=== PATIENT | male | born 1970 | race African-American/Black ===

== ENCOUNTER 2018-11-23 07:10 | Emergency (ER) | payer BC ==
[2018-11-23 07:40] VITALS: BP 139/93
--- NOTE | 2018-11-23 08:03 | UC ---
Cardiac HPI - HPI Summary HPI Summary: 47-year-old male presents with complaints of chest pain that started last night. He describes the pain as "like a muscle pull". States has been doing a lot of heavy lifting at work the last few days. Pain is reproducible with palpation and worsens with movement. States he has had similar pain in the past which has been worked up and found to be noncardiac related. Denies fever , chills, weakness, dizziness, diaphoresis, shortness of breath, cough, heartburn, abdominal pain, nausea, or vomiting. - History of Current Complaint Chief Complaint: UCChestPain Stated Complaint: LFT BACK/CHEST PAIN Time Seen by Provider: 11/23/18 07:59 Hx Obtained From: Patient Pain Intensity: 2 - Allergy/Home Medications Allergies/Adverse Reactions: Allergies Allergy/AdvReac Type Severity Reaction Status Date / Time Environmental Allergies Allergy Congestion Uncoded 11/23/18 07:26 Home Medications: Home Medications Ibuprofen TAB* [Motrin TAB* 400 MG] 400 mg PO ONCE 11/23/18 [History Confirmed 11/23/18] LevoCETirizine TAB (NF) [Xyzal TAB (NF)] 5 mg PO DAILY 11/23/18 [History Confirmed 11/23/18] Omeprazole 40 mg PO DAILY 11/23/18 [History Confirmed 11/23/18] PMH/Surg Hx/FS Hx/Imm Hx Previously Healthy: Yes GI/ History: Gastroesophageal Reflux - Surgical History Surgical History: Yes Surgery Procedure, Year, and Place: left knee acl repair 1996. laser procedure with eye to correct lazy eye 1999. torn retina repair 2017 - Family History Known Family History: Positive: Hypertension - Social History Occupation: Employed Full-time Lives: With Family Alcohol Use: None Substance Use Type: None Smoking Status (MU): Never Smoked Tobacco - Immunization History Most Recent Influenza Vaccination: 06/02/15 Most Recent Tetanus Shot: unsure Review of Systems All Other Systems Reviewed And Are Negative: Yes Constitutional: Negative: Fever, Chills Skin: Negative: Rash Respiratory: Negative: Shortness Of Breath, Cough Cardiovascular: Positive: Chest Pain. Negative: Palpitations Gastrointestinal: Negative: Abdominal Pain, Vomiting, Diarrhea, Nausea Genitourinary: Positive: Negative Musculoskeletal: Positive: Negative Psychological: Positive: Negative Is Patient Immunocompromised?: No Physical Exam - Summary Physical Exam Summary: GENERAL APPEARANCE: Well developed, well nourished, alert and cooperative, and appears to be in no acute distress. EYES: Conjunctiva clear. No drainage. EARS: External auditory canals and tympanic membranes clear, hearing grossly intact. NOSE: No nasal discharge. THROAT: Pharynx normal. No tonsilar inflammation, swelling, exudate, or lesions. Uvula midline. Oral cavity normal. Teeth and gingiva in good general condition. NECK: Neck supple, non-tender without lymphadenopathy. CARDIAC: Normal S1 and S2. No S3, S4 or murmurs. Rhythm is regular. There is no peripheral edema, cyanosis or pallor. Extremities are warm and well perfused. Capillary refill is less than 2 seconds. Peripheral pulses intact. LUNGS: Clear to auscultation without rales, rhonchi, wheezing or diminished breath sounds. ABDOMEN: Positive bowel sounds. Soft, nondistended, nontender. No guarding or rebound. No masses or hepatosplenomegally. MUSKULOSKELETAL: ROM intact to all extremities. No joint erythema or tenderness. Normal muscular development. Normal gait. SKIN: Skin normal color, texture and turgor with no lesions or eruptions. Triage Information Reviewed: Yes Vital Signs: Initial Vital Signs Temp 97.6 F 11/23/18 07:30 Pulse 62 11/23/18 07:30 Resp 16 11/23/18 07:30 BP 139/93 11/23/18 07:30 Pulse Ox 97 11/23/18 07:30 Vital Signs Reviewed: Yes Diagnostics - EKG Cardiac Rate: Bradycardia Cardiac Rhythm: Sinus: Normal Ectopy: None ST Segment: Normal - Assessment/Plan Course Of Treatment: 47-year-old male presents with complaints of chest pain that started last night. He describes the pain as "like a muscle pull". States has been doing a lot of heavy lifting at work the last few days. Pain is reproducible with palpation and worsens with movement. States he has had similar pain in the past which has been worked up and found to be noncardiac related. Denies fever , chills, weakness, dizziness, diaphoresis, shortness of breath, cough, heartburn, abdominal pain, nausea, or vomiting. Afebrile. Mildly hypertensive otherwise vital signs are stable. Exam was essentially unremarkable except for some mild left-sided chest wall pain with palpation. EKG showed a sinus bradycardia without ectopy, ST elevation, or T-wave changes. Suspect pain is most likely musculoskeletal in origin although I discussed with the patient I could not fully rule out other causes. He is to follow-up with his primary care provider within 3 days for further evaluation. Anticipatory guidance and warning symptoms requiring immediate evaluation in the emergency room were reviewed with the patient. Verbalizes understanding and agrees with plan of care. - Differential Diagnoses - Chest Pain Differential Diagnosis/HQI/PQRI: Acute CO, ACS, Chest Wall, GI Disease, Lower Respiratory Infection - Clinical Impression Provider Diagnosis: Chest wall pain Discharge - Sign-Out/Discharge Documenting (check all that apply): Patient Departure All imaging exams completed and their final reports reviewed: No - Discharge Plan Condition: Stable Disposition: HOME Patient Education Materials: Chest Pain (ED) Referrals: Shawn Harding MD [Primary Care Provider] - 3 Days Additional Instructions: The EKG performed today was normal. I suspect that your pain is most likely muculoskeletal since it is reproducible with palpation and movement however I cannot fully rule out other causes. Follow up with your primary care provider within 3-5 days for further evaluation. Seek immediate medical attention in the emergency room if you have worsening chest pain, you become weak or dizzy, have shortness or breath, break out in a cold sweat, have nausea or vomiting, or have any worsening of symptoms. - Billing Disposition and Condition Condition: STABLE Disposition: Home - Attestation Statements Provider Attestation: Per institutional requirements, I have reviewed the chart, however, I was not consulted specifically or made aware of this patient by the midlevel provider. I did not personally evaluate, interact with , or disposition this patient.
--- NOTE | 2018-11-25 15:52 | UC ---
- Progress Note Progress Note: No imaging ordered. No change in management. Course/Dx - Diagnoses Provider Diagnoses: Chest wall pain Discharge - Sign-Out/Discharge Documenting (check all that apply): Post-Discharge Follow Up All imaging exams completed and their final reports reviewed: No Studies - Discharge Plan Condition: Stable Disposition: HOME Patient Education Materials: Chest Pain (ED) Referrals: Shawn Harding MD [Primary Care Provider] - 3 Days Additional Instructions: The EKG performed today was normal. I suspect that your pain is most likely muculoskeletal since it is reproducible with palpation and movement however I cannot fully rule out other causes. Follow up with your primary care provider within 3-5 days for further evaluation. Seek immediate medical attention in the emergency room if you have worsening chest pain, you become weak or dizzy, have shortness or breath, break out in a cold sweat, have nausea or vomiting, or have any worsening of symptoms. - Billing Disposition and Condition Condition: STABLE Disposition: Home
== END 2018-11-23 08:15 | disposition home or self-care (01) ==
LOC: UCEAST 07:10
DX: R07.89 Other chest pain (principal); R03.0 Elevated blood-pressure reading, without diagnosis of hypertension; R00.1 Bradycardia, unspecified; K21.9 Gastro-esophageal reflux disease without esophagitis
CPT/HCPCS: 99211; G0463

== ENCOUNTER 2018-12-12 00:25 | Emergency (ER) | payer BC ==
--- NOTE | 2018-12-12 01:42 | ED ---
Dizziness - HPI Summary HPI Summary: This patient is a 48 year old male presenting to [facility] with a chief complaint of lightheadedness, dizziness since 2 days ago. Patient states the pain started Friday night, while he was watching TV, but he thought that he was simply tired and went to sleep. However, patient states the lightheadedness persisted, even while he was at rest. Patient spoke to his PCP and he was told to come to the ED. The pain is rated 2/10 in severity. Symptoms aggravated by nothing. Symptoms alleviated by nothing. Patient additionally reports chest pain, headache - History Of Current Complaint Chief Complaint: EDChestPainROMI Stated Complaint: "CHEST PAIN/HEADACHE DOC TOLD TO COME IN" PER PT Time Seen by Provider: 12/12/18 01:34 Hx Obtained From: Patient Onset/Duration: Still Present Timing: Constant Severity Currently: Mild Character: Lightheaded, Dizzy Aggravating Factor(s): Nothing Alleviating Factor(s): Nothing Associated Signs And Symptoms: Positive: Other: - headache, chest pain - Allergies/Home Medications Allergies/Adverse Reactions: Allergies Allergy/AdvReac Type Severity Reaction Status Date / Time Environmental Allergies Allergy Congestion Uncoded 12/12/18 00:33 Home Medications: Home Medications NK [No Home Medications Reported] 12/12/18 [History Confirmed 12/12/18] PMH/Surg Hx/FS Hx/Imm Hx Previously Healthy: No Endocrine/Hematology History: Denies: Hx Diabetes, Hx Thyroid Disease Cardiovascular History: Denies: Hx Hypertension Respiratory History: Reports: Hx Asthma Denies: Hx Chronic Obstructive Pulmonary Disease (COPD) GI History: Denies: Hx Ulcer - Surgical History Surgery Procedure, Year, and Place: left knee acl repair 1996. laser procedure with eye to correct lazy eye 1999. torn retina repair 2018 Infectious Disease History: No Infectious Disease History: Denies: Hx Clostridium Difficile, Hx Hepatitis, Hx Human Immunodeficiency Virus (HIV), Hx of Known/Suspected MRSA, History Other Infectious Disease, Traveled Outside the [place] in Last 30 Days - Family History Known Family History: Positive: Hypertension - Social History Alcohol Use: None Hx Substance Use: No Substance Use Type: Reports: None Hx Tobacco Use: No Smoking Status (MU): Never Smoked Tobacco Review of Systems Negative: Fever Neurological: Other - lightheadedness Positive: Headache All Other Systems Reviewed And Are Negative: Yes Physical Exam - Summary Physical Exam Summary: Appearance: Well-appearing, Well-nourished, lying in bed comfortably Skin: Warm, dry, no obvious rash Eyes: sclera anicteric, no conjunctival pallor ENT: mucous membranes moist, pharynx appears normal Neck: Supple, nontender Respiratory: Clear to auscultation, no signs of respiratory distress Cardiovascular: Normal S1, S2. No murmurs. Normal distal pulses in tibial and radial bilaterally. Abdomen: Soft, nontender, normal active bowel sounds present Musculoskeletal: Normal, Strength/ROM Intact Neurological: A&Ox3, awake and alert, mentation is normal, speech is fluent and appropriate Psychiatric: affect is normal, does not appear anxious or depressed Triage Information Reviewed: Yes Vital Signs On Initial Exam: Initial Vitals Temp Pulse Resp BP Pulse Ox 98 F 53 16 144/90 98 12/12/18 00:30 12/12/18 00:30 12/12/18 00:30 12/12/18 00:30 12/12/18 00:30 Vital Signs Reviewed: Yes Diagnostics - Vital Signs Vital Signs Temp Pulse Resp BP Pulse Ox 12/12/18 01:18 52 17 144/98 98 12/12/18 01:17 6 12/12/18 00:30 98 F 53 16 144/90 98 - Laboratory Result Diagrams: 12/12/18 02:03 12/12/18 02:03 Lab Statement: Any lab studies that have been ordered have been reviewed, and results considered in the medical decision making process. - Radiology CXR Radiology Interpretation Completed By: ED Physician Summary of Radiographic Findings: CXR reveals, per ED physician, No acute process. Pending official report. - EKG 33 Cardiac Rate: Bradycardia EKG Rhythm: Sinus Bradycardia Ectopy: None Summary of EKG Findings: An EKG, taken 33, reveals Sinus Bradycardia (50 BPM) , St elevation, normal axis, normal interval Dizzy Course/Dx - Course Course Of Treatment: This patient is a 48 year old male presenting to [facility] with a chief complaint of lightheadedness, dizziness since 2 days ago. Patient states the pain started Friday night, while he was watching TV, but he thought that he was simply tired and went to sleep. However, patient states the lightheadedness persisted, even while he was at rest. An EKG, taken 0034, reveals Sinus Bradycardia (50 BPM), St elevation. CXR reveals, per ED physician , No acute process. Pending official report. Bloodwork Obtained. Urinalysis Obtained. Patient will be discharged with a dx of noncardiac chest pain, near- syncope. Patient is advised to follow up with PCP in 3 days. The patient is agreeable with this plan. - Diagnoses Provider Diagnoses: Non-cardiac chest pain, Near syncope Discharge - Sign-Out/Discharge Documenting (check all that apply): Patient Departure Patient Received Moderate/Deep Sedation with Procedure: No - Discharge Plan Condition: Good Disposition: HOME Patient Education Materials: Chest Pain (ED), Near Syncope (ED) Referrals: Shawn Harding MD [Primary Care Provider] - 3 Days - Billing Disposition and Condition Condition: GOOD Disposition: Home - Attestation Statements Document Initiated by Rissa: Yes Documenting Scribe: Iftikhar Echols Provider For Whom Rissa is Documenting (Include Credential): Boby Chavira MD Scribe Attestation: Iftikhar Aguirre scribed for Boby Chavira MD on 12/12/18 at 0617. Scribe Documentation Reviewed: Yes Provider Attestation: The documentation as recorded by the Iftikhar cee accurately reflects the service I personally performed and the decisions made by , Boby Chavira MD Status of Scribe Document: Viewed
[2018-12-12 02:11] LABS: ABS Basophils 0.1 10^3/ul (0-0.2); ABS Eosinophils 0.2 10^3/ul (0-0.6); ABS Lymphocytes 2.2 10^3/ul (1.0-4.8); ABS Monocytes 0.6 10^3/ul (0-0.8); ABS Neutrophils 4.8 10^3/ul (1.5-7.7); Hematocrit 42 % (42-52); Hemoglobin 14.7 g/dL (14.0-18.0); Lymphocyte % 27.9 %; Mean Corpuscular HGB Conc 35 g/dL (31-36); Mean Corpuscular Hemoglobin 30 pg (27-31); Mean Corpuscular Volume 87 fL (80-94); Mean Platelet Volume 8.8 fL (7.4-10.4); Nucleated Red Blood Cells % 0.1; Platelet Count 201 10^3/uL (150-450); Red Blood Count 4.83 10^6 /uL (4.18-5.48); Red Cell Distribution Width 15 % (10.5-15); White Blood Count 7.9 10^3/uL (3.5-10.8)
[2018-12-12 02:26] LABS: Albumin 4.1 g/dL (3.2-5.2); Albumin/Globulin Ratio 1.7 (1-3); BUN/Creatinine Ratio 12.5 (8-20); Calcium 8.8 mg/dL (8.6-10.3); EGFR African American 84.7 (>60); Globulin 2.4 g/dL (2-4); Potassium 3.7 mmol/L (3.5-5.0); Total Bilirubin 0.5 mg/dL (0.2-1.0); Total Protein 6.5 g/dL (6.4-8.9)
[2018-12-12 04:14] VITALS: BP 125/86
== END 2018-12-12 03:20 | disposition home or self-care (01) ==
LOC: ED 00:25
DX: R07.89 Other chest pain (principal); R55 Syncope and collapse; J45.909 Unspecified asthma, uncomplicated
CPT/HCPCS: 36415; 71045; 80053; 84443; 84484; 85025; 93005; 99283

== ENCOUNTER 2019-05-04 16:54 | Emergency (ER) | payer BC ==
--- OUTSIDE RECORDS SUMMARY | 2019-05-04 17:01 | XMS REPORT | Continuity of Care Document ---
:1970 External Reference #:[id number] Author Name ELOISE Okeefe (transmitted by agent of provider Efra Madrigal) Address [address] [place] [address] Care Team Providers Name Role Phone Shawn Harding MD - Family Medicine Care Team Information Carding Supervisor Problems Active Problems Provider Date Uncomplicated moderate persistent asthma Tony Cagle RPA-C Onset: 2016 Allergic rhinitis due to pollen Tony Cagle RPA-C Onset: 01/13/2017 Allergic rhinitis Tony Cagle RPA-C Onset: 01/13/2017 Social History Type Date Description Comments Sex Unknown Tobacco Use Start: Unknown Patient has never smoked Tobacco Use Start: Unknown Second Hand Smoke Exposure In The Home Smoking Status Reviewed: 04/21/19 Second Hand Smoke Exposure In The Home Allergies, Adverse Reactions, Alerts Description No Known Drug Allergies Medications Active Medications SIG Qnty Indications Ordering Provider Date Nasonex spray 2 sprays in 1units J30.1 Christopher A. 04/21/2019 50mcg/Act each nostril by MD Rohan Suspension intranasal route once daily Roxanna Allergy take one tab by 30tabs J30.1 Christopher A. 04/21/2019 mouth daily in MD Rohan 180mg Tablets the morning. Advair HFA 2 puff twice a 8gm Christopher A. 03/24/2019 day MD Rohan 230-21mcg/Act Aerosol Xyzal Allergy 24HR take 1 tablet (5 30tabs Christopher A. 03/13/2018 mg) by oral route MD Rohan 5mg Tablets once daily as needed Proair HFA 2 puffs every 4 8.500gm Bety Simpson NP 03/13/2018 as needed 108(90Base) mcg/Act Aerosol Vitamin C take 1 tablet by Unknown 500mg oral route daily Tablets Ativan Unknown Omeprazole Shawn Harding MD 20mg Capsules DR Medications Administered in Office Medication SIG Qnty Indications Ordering Provider Date Allergy Injection 2 Or More Efra Madrigal MD 10/09/2018 Injection Allergy Injection 2 Or More Efra Madrigal MD 10/02/2018 Injection Allergy Injection 2 Or More Efra Madrigal MD 09/23/2018 Injection Allergy Injection 2 Or More Efra Madrigal MD 09/04/2018 Injection Allergy Injection 2 Or More Efra Madrigal MD 08/14/2018 Injection Allergy Injection 2 Or More Efra Madrigal MD 07/24/2018 Injection Allergy Injection 2 Or More Efra Madrigal MD 07/17/2018 Injection Allergy Injection 2 Or More Efra Madrigal MD 07/10/2018 Injection Allergy Injection 2 Or More Efra Madrigal MD 07/01/2018 Injection Allergy Injection 2 Or More Efra Madrigal MD 05/22/2018 Injection Allergy Injection 2 Or More Efra Madrigal MD 05/08/2018 Injection Allergy Injection 2 Or More Efra Madrigal MD 05/01/2018 Injection Allergy Injection 2 Or More Efra Madrigal MD 04/17/2018 Injection Allergy Injection 2 Or More Efra Madrigal MD 04/10/2018 Injection Allergy Injection 2 Or More Efra Madrigal MD 12/05/2017 Injection Allergy Injection 2 Or More Efra Madrigal MD 11/28/2017 Injection Allergy Injection 2 Or More Efra Madrigal MD 11/14/2017 Injection Allergy Injection 2 Or More Efra Madrigal MD 10/31/2017 Injection Allergy Injection 2 Or More Efra Madrigal MD 10/24/2017 Injection Allergy Injection 2 Or More Efra Madrigal MD 09/26/2017 Injection Allergy Injection 2 Or More Efra Madrigal MD 09/05/2017 Injection Allergy Injection 2 Or More Efra Madrigal MD 08/29/2017 Injection Allergy Injection 2 Or More Efra Madrigal MD 08/06/2017 Injection Allergy Injection 2 Or More Efra Madrigal MD 08/01/2017 Injection Allergy Injection 2 Or More Efra Madrigal MD 07/21/2017 Injection Allergy Injection 2 Or More Efra Madrigal MD 02/21/2017 Injection Allergy Injection 2 Or More Efra Madrigal MD 01/29/2017 Injection Allergy Injection 2 Or More Efra Madrigal MD 04/12/2016 Injection Allergy Injection 2 Or More Efra Madrigal MD 03/27/2016 Injection Allergy Injection 2 Or More Efra Madrigal MD 02/21/2016 Injection Allergy Injection 2 Or More Efra Madrigal MD 02/09/2016 Injection Allergy Injection 2 Or More Efra Madrigal MD 01/24/2016 Injection Allergy Injection 2 Or More Efra Madrigal MD 12/22/2015 Injection Allergy Injection 2 Or More Efra Madrigal MD 11/17/2015 Injection Allergy Injection 2 Or More Efra Madrigal MD 10/20/2015 Injection Allergy Injection 2 Or More Efra Madrigal MD 10/06/2015 Injection Allergy Injection 2 Or More Efra Madrigal MD 09/08/2015 Injection Allergy Injection 2 Or More Efra Madrigal MD 08/25/2015 Injection Allergy Injection 2 Or More Efra Madrigal MD 07/21/2015 Injection Allergy Injection 2 Or More Efra Madrigal MD 06/30/2015 Injection Allergy Injection 2 Or More Efra Madrigal MD 06/16/2015 Injection Immunizations Description No Information Available Vital Signs Date Vital Result Comment 04/21/2019 2:49pm BP Systolic 140 mmHg BP Diastolic 101 mmHg Height 72 inches 6'0" Weight 225.00 lb BMI (Body Mass Index) 30.5 kg/m2 Heart Rate 81 /min O2 % BldC Oximetry 95 % 03/13/2018 3:37pm BP Systolic 122 mmHg BP Diastolic 91 mmHg Height 72 inches 6'0" Weight 217.00 lb BMI (Body Mass Index) 29.4 kg/m2 Heart Rate 73 /min Body Temperature 97.4 F O2 % BldC Oximetry 98 % Results Test Date Facility Test Result H/L Range Note Order 04/21/2019 [facility] Nitric Oxide <pending> PFT Supplies <pending> PFT With Bronchodilator <pending> Procedures Date Code Description Status 04/21/2019 45594 Nitric Oxide Gas Determination Completed 04/21/2019 28035 Bronchodilation Responsiveness Spirometry Pre/Post Completed Bronchodil Adm 03/15/2019 31197 Allergy Antigens Single Or Multiple Completed Medical Devices Description No Information Available Encounters Type Date Location Provider Dx Diagnosis Office Visit 04/21/2019 2:30p [facility] ELOISE Okeefe J30.1 Allergic rhinitis due to pollen J30.89 Other allergic rhinitis J45.40 Moderate persistent asthma, uncomplicated Assessments Date Code Description Provider 04/21/2019 J30.1 Allergic rhinitis due to pollen ELOISE Okeefe 04/21/2019 J30.89 Other allergic rhinitis ELOISE Okeefe 04/21/2019 J45.40 Moderate persistent asthma, uncomplicated ELOISE Okeefe 03/15/2019 J30.1 Allergic rhinitis due to pollen Efra Madrigal MD 03/15/2019 J30.89 Other allergic rhinitis Efra Madrigal MD Plan of Treatment Future Appointment(s):10/20/2019 3:00 pm - ELOISE [facility]keefe at [id number]/21/2019 - ELOISE OkeefeJ30.1 Allergic rhinitis due to pollenNew Medication:Nasonex 50 mcg/Act - spray 2 sprays in each nostril by intranasal route once dailyAllegra Allergy 180 mg - take one tab by mouth daily in the morning.J30.89 Other allergic [id number] Moderate persistent asthma, uncomplicatedComments: Patient's PFT is within normal limits and exhaled nitric oxide is normal at 18 ppb. Patient to continue Advair, reduce dosage, 1 puff twice a day for prophylaxis of his lungs and Pro Air for breakthrough chest symptoms. Patient to start Nasonex for prophylaxis of his nose and Roxanna for breakthrough nasal symptoms. Saline nasal rinse and HEPA air filter may help decrease allergens. Patient to continue allergy immunotherapy injections.Follow up:6 months, PFT and NIOX prior Functional Status Description No Information Available Mental Status Description No Information Available Referrals Description No Information Available
--- OUTSIDE RECORDS SUMMARY | 2019-05-04 17:01 | XMS REPORT | Summary of Care ---
:1970 Author Organization [facility] Address [address] [address] Care Team Providers Name Role Phone Shawn Harding MD Primary Care Provider Reason for Visit Auth/Cert Status Reason Specialty Diagnoses / Procedures Referred By Contact Referred To Contact Encounter Details Date Type Department Care Team Description 03/18/2019 Hospital Encounter [facility] Preprocedure Stiven Fajardo, Short [place] [address] [place] [address] [address] [phone] [address] [address] [phone] Allergies Active Allergy Reactions Severity Noted Date Comments Environmental Respiratory Reaction 10/09/2017 documented as of this encounter (statuses as of 03/19/2019) Medications Medication Sig Dispensed Refills Start Date End Date Status Levocetirizine 0 07/20/2015 Active Dihydrochloride 5 MG Oral Tab Multiple Take by mouth 0 Active Vitamins-Minerals (MENS DAILY. ONE DAILY PO) albuterol HFA Take 2 Puffs by 1 Inhaler 2 11/11/2016 Active (VENTOLIN) 108 (90 inhalation EVERY BASE) MCG/ACT SIX HOURS Inhalation Aero Soln NEEDED (sports). acyclovir (ZOVIRAX) 400 Take 1 Tab by 60 Tab 5 05/22/2018 Active MG Oral Tab mouth TWICE DAILY. LORazepam (ATIVAN) 0.5 Take 1 Tab by 30 Tab 0 09/24/2018 Active MG Oral Tab mouth EVERY EIGHT HOURS NEEDED (anxiety or sleep). Max Daily Amount: 1.5 mg. Omeprazole 40 MG Oral Take 1 Cap by 60 Cap 1 02/12/2019 Active CAPSULE DELAYED RELEASE mouth TWICE DAILY. 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 Oskar Gallagher re strabismus showed VA OS Count Fingers 11/07/16 VA OS listed as hand motion; MR OS -15.00 -1.25 x 180 (balance lens prescribed) Ruptured lumbar disc 08/07/2016 Benign hypertension 07/06/2016 Lumbosacral spondylosis with radiculopathy 05/20/2016 Helicobacter pylori gastritis 05/09/2015 ISAÍAS (obstructive sleep apnea) 08/12/2014 Knee pain left ACL Repair 1997 09/10/2012 documented as of this encounter (statuses as of 03/19/2019) Resolved Problems Problem Noted Date Resolved Date Light headed 01/21/2012 05/02/2016 documented as of this encounter (statuses as of 03/19/2019) Immunizations Name Administration Dates Next Due Depo Medrol (80mg) 09/10/2012 Influenza (IM) Preservative Free 04/29/2017 TDAP Vaccine 10/07/2015 documented as of this encounter Social History Tobacco Use Types Packs/Day Years Used Date Never Smoker Smokeless Tobacco: Never Used Alcohol Use Drinks/Week oz/Week Comments No 0 Standard drinks or equivalent 0.0 Sex Assigned at Date Recorded Not on file Job Start Date Occupation Industry Not on file Not on file Not on file Travel History Travel Start Travel End No recent travel history available. documented as of this encounter Last Filed Vital Signs Vital Sign Reading Time Taken Comments Blood Pressure 132/90 03/18/2019 3:43 PM EDT Pulse 68 03/18/2019 3:43 PM EDT Temperature 36.7 03/18/2019 3:43 PM EDT C (98 F) Respiratory Rate 18 03/18/2019 3:43 PM EDT Oxygen Saturation 95% 03/18/2019 3:43 PM EDT Inhaled Oxygen Concentration - - Weight - - Height - - Body Mass Index - - documented in this encounter Plan of Treatment Date Type Specialty Care Team Description 04/01/2019 Office Visit Family Practice Shawn Harding MD [address] [place] [address] [phone] 04/08/2019 Ocular Visit Ophthalmology Stiven Fajardo MD [address] [address] [phone] Health Maintenance Due Date Last Done Comments LIPID DISORDER SCREENING 1988 INFLUENZA VACCINE (#1) 2019 04/29/2017 DIABETES SCREENING 06/18/2019 06/18/2018, 04/25/2017, 03/15/2015, Additional history exists DEPRESSION SCREENING 02/24/2020 02/23/2019 HPV IMMUNIZATION SERIES Aged Out No longer eligible based on patient's age to complete this topic MENINGOCOCCAL VACCINE IMM Aged Out No longer eligible based on patient's age to complete this topic PNEUMOCOCCAL 0-64 YRS Aged Out No longer eligible based on patient's age to complete this topic documented as of this encounter Goals Goal Patient Goal Associated Recent Patient-Stated? Author Type Problems Progress Blood Pressure Blood Pressure 132/90 No Lola, < 140/90 (03/18/2019 L[place], 3:43 PM EDT) Note: This is an individualized treatment (blood pressure) goal for Ruben Kruse: Displayed above (on the left) is your goal for blood pressure control. Your most recent blood pressure is also shown above, on the right. You should try to achieve blood pressures that are lower than your goal listed above (on the left). Depression screen (PHQ-9) total score < 5 Depression No Shawn Harding MD Note: This is an individualized treatment (depression) goal for Ruben Kruse: Displayed above is your goal for a depression screening (PHQ-9) score that would indicate good control of your depression. Keep a regular sleep schedule Lifestyle No Shawn Harding MD Note: This is an individualized lifestyle goal for Ruben Kruse: Please maintain a regular sleep schedule. This may help with some symptoms of depression. Weight loss vs. 18 mo Lifestyle 2.2 (02/23/2019 9:10 AM EDT) No Shawn Harding MD max (lbs) >= 10 Note: This is an individualized lifestyle goal for Ruben Kruse: Your body mass index (BMI) is more than 30. You should lose weight. A reasonable starting goal is to lose 10 pounds. Displayed above is how many pounds you have lost thus far towards your 10 pound weight loss goal. Take all prescribed medications as directed Self-management No Shawn Harding MD Note: This is an individualized self-management goal for Ruben Kruse: Please take all prescribed medications as directed. 1. Do not skip doses. If you cannot afford your medications, talk with your doctor. 2. Use a pill reminder system such as a pill box if needed. Your pharmacist can help you with this. 3. Contact your Pharmacy 5 days before your medication runs out. If you cannot take your medications for any reasons, talk with your doctor. 4. Please bring all of your medication bottles and inhalers (or a list of all your medications/inhalers) with you to every visit. Potential barriers to meeting all of your care plan goals will continue to be addressed on an ongoing basis. documented as of this encounter Implants Implanted Type Area Underwriting Analyst Device Shelf Model / Serial Identifier Expiration Date / Lot Gel Sponge Jose Armando - [id number] LABTIC 03/10/2020 [id number] / Implanted: Qty: 1 on 02/27/2017 by Stiven Fajardo MD at [facility] / [id number] Scleral Sleeve - [id number] LABTIC 12/08/2021-13 / Implanted: Qty: 1 on 02/27/2017 by Stiven Fajardo MD at [facility] / [id number] Inex Scleral Buckling Componen - [id number] LABTIC / Implanted: Qty: 1 on 02/27/2017 by Stiven Fajardo MD at [facility] / [id number] Iol, [id number] 3.0 Diopter - [id number] Left: Eye MAL [id number] / Implanted: Qty: 1 on 03/18/2019 by Stiven Fajardo MD at [facility] [id number] / documented as of this encounter Procedures Procedure Name Priority Date/Time Associated Comments Diagnosis VITRECTOMY 25 GUAGE, Planned Trip to [place] 03/18/2019 1:16 PM Vitreous floaters, PHACO EDT left Combined forms of age-related cataract of left eye Case Notes 1230 REPORT PHYSICIAN ORDER 03/18/2019 12:00 PM EDT OPHTHALMOLOGY PROCEDURE FORM 03/18/2019 12:00 PM EDT MISC SCANNED DOCUMENT 03/18/2019 12:00 PM EDT OPERATIVE/PERIOPERATIVE FORM 03/18/2019 12:00 PM EDT SIGN PERMIT 03/18/2019 12:00 PM EDT documented in this encounter Results Not on filedocumented in this encounter Administered Medications Medication Order MAR Action Action Date Dose Rate Site acetaminophen (TYLENOL) tablet 325 mg 325 mg, Oral, Q4 HRS PRN, Starting Susan 03/18/19 at 1319, Until Susan 03/18/19 at 1835 , Mild Pain (pain scale 1-3) - PO - 1st line - if immediate effect not required and patient can tolerate PO acetaminophen (TYLENOL) tablet 650 mg 650 mg, Oral, Q4 HRS PRN, Starting Susan 03/18/19 at 1319, Until Susan 03/18/19 at 1835 , Moderate Pain (pain scale 4-6) - PO - 1st line - if immediate effect not required and patient can tolerate PO atropine ophthalmic solution 1 % 1 Drop, Left Eye, X1 PRN, 1 dose, Starting Susan 03/18/19 at 1319, Until Susan at 1835, Procedure - Give at the direction of the provider during procedure indocyanine green (IC GREEN) injection 25 MG 25 mg, Intraocular Left, X1 PRN, 1 dose, Starting Susan 03/18/19 at 1319, Until Susan 03/18/19 at 1835, Procedure - Give at the direction of the provider during procedure ondansetron (ZOFRAN ODT) soluble tablet 4 mg 4 mg, Oral, Q8 HRS PRN, Starting Susan 03/18/19 at 1319, Until Susan 03/18/19 at 1835, Nausea/Vomiting - PO - 1st line - if immediate effect not required and patient can tolerate PO proparacaine (ALCAINE) ophthalmic solution 0.5 % 1 Drop, Left Eye, X1 MR, 2 doses, First dose on Susan 03/18/19 at 1330, Last dose on Susan 03/25/19 at 1330 sodium chondroitin sulfate-sodium hyaluronate (VISCOAT) intraocular injection 1 mL 1 mL, Intraocular Left, PRN, Starting Susan 03/18/19 at 1319, Until Susan 03/18/19 at 1835, Procedure - Give at the direction of the provider during procedure sodium hyaluronate (AMVISC PLUS) 16 MG/ML syringe 16 mg 16 mg (1 mL), Intraocular Left, PRN, Starting Susan 03/18/19 at 1319, Until Susan 03/18 at 1835, Procedure - Give at the direction of the provider during procedure sodium hyaluronate 23 MG/ML SOLN (Ordered as: HEALON5) 13.8 mg (0.6 mL), Intraocular Left, PRN, Starting Susan 03/18/19 at 1319, Until Susan 03/18/19 at 1835, Procedure - Give at the direction of the provider during procedure triamcinolone acetonide (KENALOG-40) injection 40 mg 40 mg, Intraocular Left, PRN, 1 dose, Starting Susan 03/18/19 at 1319, Until Susan 03/18/19 at 1835, Procedure - Give at the direction of the provider during procedure trypan blue (MEMBRANE BLUE) 0.15 % syringe 0.5 mL 0.5 mL, Intraocular Left, X1 PRN, 1 dose, Starting Susan 03/18/19 at 1319, Until Susan 03/18/19 at 1835, Procedure - Give at the direction of the provider during procedure trypan blue (VISION BLUE) 0.06 % syringe 0.5 mL 0.5 mL, Intraocular Left, X1 PRN, 1 dose, Starting Susan 03/18/19 at 1319, Until Susan 03/18/19 at 1835, Procedure - Give at the direction of the provider during procedure documented in this encounter Insurance Payer Benefit Plan / Subscriber ID Effective Dates Phone Address Type Group GENERIC ID [id number] xxxxxxxxxxx 2017-[employer] [facility] GENERIC (Work) [id number] documented as of this encounter
--- OUTSIDE RECORDS SUMMARY | 2019-05-04 17:01 | XMS REPORT | Continuity of Care Document ---
:1970 External Reference #:[id number] Author Name ELOISE Okeefe (transmitted by agent of provider Shira Sotomayor) Address [address] [place] [address] Care Team Providers Name Role Phone Shawn Harding MD - Family Medicine Care Team Information Professor Of Historical Theology [phone] Problems Active Problems Provider Date Uncomplicated moderate [...] Medications SIG Qnty Indications Ordering Provider Date Advair HFA 2 puff twice a 8gm Christopher A. 03/24/2019 day MD Rohan 230-21mcg/Act Aerosol Xyzal Allergy 24HR take 1 tablet 30tabs Christopher A. 03/13/2018 (5 mg) by oral MD Rohan 5mg Tablets route once daily as needed Proair HFA 2 puffs every 4 8.500gm Bety Simpson NP 03/13/2018 as needed 108(90Base) mcg/Act Aerosol Vitamin C take 1 tablet Unknown 500mg by oral route Tablets daily Ativan Unknown Omeprazole Shawn Harding MD 20mg [...] O2 % BldC Oximetry 98 % Results Description No Information Available Procedures Date Code Description Status 03/15/2019 31842 Allergy Antigens Single Or Multiple Completed Medical Devices Description No Information Available Encounters Description No Information Available Assessments Date Code Description Provider 03/15/2019 J30.1 Allergic rhinitis due to pollen Efra Madrigal MD 03/15/2019 J30.89 Other allergic rhinitis Efra Madrigal MD Plan of Treatment No Information Available Functional Status Description No Information Available Mental Status Description No Information Available Referrals Description No Information Available
--- OUTSIDE RECORDS SUMMARY | 2019-05-04 17:01 | XMS REPORT | Summary of Care ---
:1970 Author Organization [facility] Address [address] [address] Care Team Providers Name Role Phone Shawn Harding MD Primary Care Provider Reason for Referral MRI/CAT/PET Scan (Routine) Status Reason Specialty Diagnoses / Referred By Referred To Procedures Contact Contact Pending Review Diagnoses Chest pain, unspecified type Shawn Harding MD Procedures CT CHEST WITH IV CONTRAST [address] [place] [address] Reason for Visit Reason Comments Annual Exam still chest pain Encounter Details Date Type Department Care Team Description 04/01/2019 Office Visit [facility] Shawn Harding MD Chest pain, unspecified type (Primary Dx); Practice [address] [facility] Dysuria [address] [place], [place] [id number] [place] [address] [phone] Allergies Active Allergy Reactions Severity Noted Date Comments Environmental Respiratory Reaction 10/09/2017 documented as of this encounter (statuses as of 04/01/2019) Medications Medication Sig Dispensed Refills Start End Date Status Date Levocetirizine 0 Active Dihydrochloride 5 MG 5 Oral Tab Multiple Take by mouth 0 Active Vitamins-Minerals DAILY. (MENS ONE DAILY PO) albuterol HFA Take 2 Puffs 1 Inhaler 2 Active (VENTOLIN) 108 (90 by inhalation 7 BASE) MCG/ACT EVERY SIX Inhalation Aero Soln HOURS NEEDED (sports). acyclovir (ZOVIRAX) Take 1 Tab by 60 Tab 5 Active 400 MG Oral Tab mouth TWICE 8 DAILY. Omeprazole 40 MG Take 1 Cap by 60 Cap 1 Active Oral CAPSULE DELAYED mouth TWICE 9 RELEASE DAILY. prednisoLONE acetate Place 1 Drop 1 Bottle 1 Active (PRED FORTE) 1 % in left eye 9 Ophthalmic FOUR TIMES SuspensionIndication DAILY. s: Pseudophakia, left eye LORazepam (ATIVAN) Take 1 Tab by 30 Tab 0 Active 0.5 MG Oral Tab mouth EVERY 9 EIGHT HOURS NEEDED (anxiety or sleep). Max Daily Amount: 1.5 mg. LORazepam (ATIVAN) Take 1 Tab by 30 Tab 0 04/01/20 Discontinued 0.5 MG Oral Tab mouth EVERY 9 19 (Reorder) EIGHT HOURS NEEDED (anxiety or sleep). Max Daily Amount: 1.[address] trimethoprim-polymyx Place 1 Drop 1 Bottle 0 04/01/20 Discontinued in B (POLYTRIM) in left eye 9 [id number] UNIT/ML-% FOUR TIMES Ophthalmic DAILY. SolutionIndications: Pseudophakia, left eye documented as of this encounter (statuses as of 04/01/2019) Active Problems Problem Noted Date Pseudophakia, left eye 03/19/2019 Right elbow pain 09/09/2018 Vitreous floaters of [...] (balance lens prescribed) Ruptured lumbar disc 08/07/2016 Lumbosacral spondylosis with radiculopathy 05/20/2016 Helicobacter pylori gastritis 05/09/2015 ISAÍAS (obstructive sleep apnea) 08/12/2014 Knee pain left ACL Repair 1997 09/10/2012 documented as of this encounter (statuses as of 04/01/2019) Resolved Problems Problem Noted Date Resolved Date Benign hypertension 07/06/2016 04/01/2019 Light headed 01/21/2012 05/02/2016 documented as of this encounter (statuses as of 04/01/2019) Immunizations Name Administration Dates Next Due Depo [...] Sign Reading Time Taken Comments Blood Pressure 120/80 04/01/2019 3:34 PM EDT Pulse 80 04/01/2019 3:34 PM EDT Temperature - - Respiratory Rate - - Oxygen Saturation 95% 04/01/2019 3:34 PM EDT Inhaled Oxygen Concentration - - Weight 102.5 kg (226 lb) 04/01/2019 3:34 PM EDT Height - - Body Mass Index 30.65 02/23/2019 9:10 AM EDT documented in this encounter Progress Notes Shawn Harding MD - 04/01/2019 3:40 PM EDT PATIENT: Ruben Kruse : 1970 DATE OF SERVICE: 04/01/2019 CHIEF COMPLAINT: Chief Complaint Patient presents with Annual Exam still chest pain Subjective HISTORY OF PRESENT ILLNESS: Ruben Kruse is a 48-y.o. male. Jovana not seen in a few years but he has been in. Has a chief complaint of left sided CP. Almost constant. Had it come and go before but now more constant. No injury. In past had workup including imaging and cardiac testing Work not make it worse, nothing makes better since has been constant PPI used to help but not now.Sometimes radiate to left biceps. Not SOB but using steroid inhaler every day. Rescue inhaler is as needed Burn with urination began 3 days ago. No other pain , not more often , trying not to drink a lot. No fever Not been sexually active in a month. Past Medical History: Diagnosis Date Asthma Environmental allergies and allergies Eye disease Gastritis EGD H/O cold sores Internal hemorrhoid 2017 10 years ISAÍAS (obstructive sleep apnea) unit taken away Surgery, elective Family History Problem Relation Age of Onset Heart Father Heart Unknown uncle Current Outpatient Medications Medication Sig acyclovir (ZOVIRAX) 400 MG Oral Tab Take 1 Tab by mouth TWICE DAILY. albuterol HFA (VENTOLIN) 108 (90 BASE) MCG/ACT Inhalation Aero Soln Take 2 Puffs by inhalation EVERY SIX HOURS NEEDED (sports). Levocetirizine Dihydrochloride 5 MG Oral Tab LORazepam (ATIVAN) 0.5 MG Oral Tab Take 1 Tab by mouth EVERY EIGHT HOURS NEEDED (anxiety or sleep). Max Daily Amount: 1.5 mg. Multiple Vitamins-Minerals (MENS ONE DAILY PO) Take by mouth DAILY. Omeprazole 40 MG Oral CAPSULE DELAYED RELEASE Take 1 Cap by mouth TWICE DAILY. prednisoLONE acetate (PRED FORTE) 1 % Ophthalmic Suspension Place 1 Drop in left eye FOUR TIMES DAILY. No current facility-administered medications for this visit. Allergies Allergen Reactions Environmental Respiratory Reaction Social History Socioeconomic History Marital status: Single Spouse name: Not on file Number of children: Not on file Years of education: Not on file Highest education level: Not on file Occupational History Not on file Social Needs Financial resource strain: Not on file Food insecurity: Worry: Not on file Inability: Not on file Transportation needs: Medical: Not on file Non-medical: Not on file Tobacco Use Smoking status: Never Smoker Smokeless tobacco: Never Used Substance and Sexual Activity Alcohol use: No Alcohol/week: 0.0 standard drinks Drug use: No Comment: Marijuana, none since 2003 Sexual activity: Yes Partners: Female Lifestyle Physical activity: Days per week: Not on file Minutes per session: Not on file Stress: Not on file Relationships Social connections: Talks on phone: Not on file Gets together: Not on file Attends jain service: Not on file Active member of club or organization: Not on file Attends meetings of clubs or organizations: Not on file Relationship status: Not on file Intimate partner violence: Fear of current or ex partner: Not on file Emotionally abused: Not on file Physically abused: Not on file Forced sexual activity: Not on file Other Topics Concern Back Care Not Asked Bike Helmet Not Asked Blood Transfusions Not Asked Caffeine Concern Not Asked Exercise Not Asked Hobby Hazards Not Asked International Travel Not Asked Service Not Asked Occupational Exposure Not Asked Seat Belt Not Asked Self-Exams Not Asked Sleep Concern Not Asked Special Diet Not Asked Stress Concern Not Asked Weight Concern Not Asked Social History Narrative Works doing [employer], 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 Single, resides alone. 4 children, age 16-8-6-4. One here, 2 [place], 1 [place]. Never had regular medical care. Never got sick. REVIEW OF SYSTEMS: ROS Objective PHYSICAL EXAM: VITALS: BP 120/80 (BP Location: Left arm, Patient Position: Sitting) | Pulse 80 | Wt 226 lb (102.5 kg) | SpO2 95% | BMI 30.65 kg/m Body mass index is 30.65 kg/m. Physical Exam Constitutional: No distress. Neck: Neck supple. Cardiovascular: Normal rate, regular rhythm and normal heart sounds. Pulmonary/Chest: Effort normal and breath sounds normal. No respiratory distress. He has no wheezes.He exhibits no tenderness. Genitourinary: Genitourinary Comments: Male - no penile lesions or discharge, no testicular masses or tenderness, no hernias Musculoskeletal: He exhibits no edema. Lymphadenopathy: He has no cervical adenopathy. Psychiatric: Dress and hygiene good Good eye contact Thoughts and speech normal Affect Appropriate Mood normal Vitals reviewed. rom of arms not reproduce pain EKG normal CXR normal UA 1+ protein and blood non hemolyzed trace ASSESSMENT / IMPRESSION: ICD-9-CM ICD-10-CM 1. Chest pain, unspecified type likely not cardiac with constant pain no EKG changes and not worse with exertion but also not consistent with GERD Not classic muscular either as not hurt to move or palpate Will evaluate further with a CT scan 786.50 R07.9 AMBULATORY 12 LEAD EKG (GLOBAL) XR CHEST 2 VIEW PA AND LATERAL (STANDARD) CT CHEST WITH IV CONTRAST 2. Dysuria With some hematuria ? A prostatitis Will check cultures and may gie antibiotics and refer to urology based on microscopic exam 788.1 R30.0 URINE MICROSCOPIC EXAM URINE CULTURE (C&S) Plan The [facility] I-STOP site was accessed and there were no concerns noted with controlled substance usage [id number] Author: Shawn Harding MD 04/01/2019 15:52 documented in this encounter Plan of Treatment Date Type Specialty Care Team Description 04/08/2019 Ocular Visit Ophthalmology Stiven Fajardo MD [address] [address] [phone] Name Type Priority Associated Diagnoses Order Schedule AMBULATORY 12 LEAD EKG EKG Routine Chest pain, unspecified Ordered: 2018 (GLOBAL) type CT CHEST WITH IV Imaging Routine Chest pain, unspecified Expected: 2018, CONTRAST type Expires: 03/31/2020 URINE MICROSCOPIC EXAM Lab Routine Dysuria Expected: 04/01/2019 (Approximate), Expires: 04/01/2020 URINE CULTURE (C&S) Lab Routine Dysuria 1 Occurrences starting 04/01/2019 until 09/28/2019 Health Maintenance Due Date Last Done Comments [...] Type Problems Progress Blood Pressure Blood Pressure 120/80 No Lola, < 140/90 (04/01/2019 Lorena, 3:34 PM EDT) Note: This is an individualized [...] of depression. Weight loss vs. 18 mo max Lifestyle 0 (04/01/2019 3:34 PM EDT) No Shawn Harding MD (lbs) >= 10 Note: This is an [...] of this encounter Implants Implanted Type Area Land Surveyor Device Shelf Model / Serial Identifier Expiration Date / Lot Gel Sponge Jose Armando - [id number] LABTIC 03/10/2020 [id number] / Implanted: Qty: 1 on 02/27/2017 by Stiven Fajardo MD at [facility] / [id number] Scleral Sleeve - [id number] LABTIC 12/08/2021 92-13 / Implanted: Qty: 1 on 02/27/2017 by Stiven Fajardo MD at [facility] / [id number] Inex Scleral Buckling Componen - [id number] LABTIC 92-02 / Implanted: Qty: 1 on 02/27/2017 by Stiven Fajardo MD at [facility] / [id number] Iol, [id number] 3.0 Diopter - [id number] Left: Eye STORZ [id number] / Implanted: Qty: 1 on 03/18/2019 by Stiven Fajardo MD at [facility] [id number] / documented as of this encounter Results XR CHEST 2 VIEW PA AND LATERAL (STANDARD) (04/01/2019 4:18 PM EDT) Specimen Impressions Performed At No acute cardiopulmonary findings. Urgency: Routine. This is a routine medical imaging report. Recommendation: No specific imaging recommendation. Signed by Breezy De Los Santos MD on 04/01/2019 4:49 PM Narrative Performed At Procedure(s): XR CHEST 2 VIEW PA AND LATERAL (STANDARD) Date of service: 04/01/2019 4:15 PM Provided clinical information: 48 years, Male, "chest pain" Procedure and materials: Standard protocol. Comparison studies: 04/25/2017 Observations: There is no definite evidence of a acute infiltrate, pleural effusion or pneumothorax. . Heart size is within normal limits with no evidence of cardiac failure. No acute osseous abnormalities are seen. Procedure Note Interface, Rad Results - 04/01/2019 4:51 PM EDT Procedure(s): XR CHEST 2 VIEW PA AND LATERAL (STANDARD) Date of service: 04/01/2019 4:15 PM Provided clinical information: 48 years, Male, "chest pain" Procedure and materials: Standard protocol. Comparison studies: 04/25/2017 Observations: There is no definite evidence of a acute infiltrate, pleural effusion or pneumothorax. . Heart size is within normal limits with no evidence of cardiac failure. No acute osseous abnormalities are seen. IMPRESSION No acute cardiopulmonary findings. Urgency: Routine. This is a routine medical imaging report. Recommendation: No specific imaging recommendation. Signed by Breezy De Los Santos MD on 04/01/2019 4:49 PM documented in this encounter Visit Diagnoses Diagnosis Chest pain, unspecified type - Primary Dysuria documented in this encounter Guarantor Name Account Type Relation to Date of Phone Billing Address Patient Ruben Kruse Personal/Family 1970 [address] (Home) [place] [phone] [place], [place] (Work) [address] documented as of this encounter
[2019-05-04 17:26] VITALS: BP 109/72
--- NOTE | 2019-05-04 18:12 | UC ---
UC General HPI - HPI Summary HPI Summary: The patient is a 48-year-old male with the onset of left calf pain and swelling yesterday. He denies any injury. He stated his calf feels tight. Today he noticed some swelling and tenderness in his right medial femoral area. He denies any testicular pain. He has had no cough chest pain or weight loss. - History of Current Complaint Chief Complaint: UCLowerExtremity Stated Complaint: LEFT LEG PAIN, RT GROIN PAIN Time Seen by Provider: 05/04/19 18:05 Hx Obtained From: Patient Onset/Duration: Gradual Onset, Lasting Hours Timing: Constant Onset Severity: Moderate Current Severity: Moderate Pain Intensity: 5 Pain Location at: see image Aggravating: wt bearing Associated Signs & Symptoms: Negative: Agitation, Abdominal Pain, Anticoagulation Therapy, Back Pain, Confusion, Cough, Chest Pain, Decreased Responsiveness, Dizziness, Diarrhea, Dysuria, Decreased Oral Intake, Diaphoresis , Edema, Fever, Headache, Hematemesis, Hemoptysis, Immunocompromised, In- Dwelling Medication Device, Melena, Nausea, Palpitations, Recent Medication Changes, Syncope, SOB, Trauma, Vomiting, Wheezing, Weakness - Allergy/Home Medications Allergies/Adverse Reactions: Allergies Allergy/AdvReac Type Severity Reaction Status Date / Time Environmental Allergies Allergy Congestion Uncoded 05/04/19 17:26 Home Medications: Home Medications Fluticasone NASAL SPRAY 50MCG* [Flonase NASAL SPRAY 50MCG*] 2 spray BOTH NARES DAILY 05/04/19 [History Confirmed 05/04/19] Fluticasone-Salmeterol 250-50* [Advair Diskus 250-50*] 1 puff INH BID 05/04/19 [ History Confirmed 05/04/19] PMH/Surg Hx/FS Hx/Imm Hx Previously Healthy: Yes - Surgical History Surgical History: Yes Surgery Procedure, Year, and Place: left knee acl repair 1996. laser procedure with eye to correct lazy eye 1999. torn retina repair 2017 - Family History Known Family History: Positive: Cardiac Disease, Hypertension - Social History Alcohol Use: None Substance Use Type: None Smoking Status (MU): Never Smoked Tobacco - Immunization History Most Recent Influenza Vaccination: 06/02/15 Most Recent Tetanus Shot: unsure Review of Systems All Other Systems Reviewed And Are Negative: Yes Constitutional: Positive: Negative Skin: Positive: Negative Eyes: Positive: Negative ENT: Positive: Negative Respiratory: Positive: Negative Cardiovascular: Positive: Negative Gastrointestinal: Positive: Negative Genitourinary: Positive: Negative Motor: Positive: Negative Neurovascular: Positive: Negative Musculoskeletal: Positive: Myalgia - left calf/right femoral Neurological: Positive: Negative Psychological: Positive: Negative - Right inguinal Physical Exam Triage Information Reviewed: Yes Appearance: Well-Appearing, No Pain Distress, Well-Nourished Vital Signs: Initial Vital Signs Temp 99.0 F 05/04/19 17:19 Pulse 72 05/04/19 17:19 Resp 16 05/04/19 17:19 BP 109/72 05/04/19 17:19 Pulse Ox 97 05/04/19 17:19 Vital Signs Reviewed: Yes Eyes: Positive: Conjunctiva Clear ENT: Positive: Hearing grossly normal. Negative: Nasal congestion, Nasal drainage, Tonsillar exudate, Trismus, Hoarse voice, Uvula midline Neck: Positive: Supple, Nontender Respiratory: Positive: Lungs clear, Normal breath sounds, No respiratory distress, No accessory muscle use Cardiovascular: Positive: RRR, No Murmur Abdomen Description: Positive: Nontender, No Organomegaly, Soft - Reason for Musculoskeletal: Positive: ROM Intact, No Edema Neurological: Positive: Alert Psychological Exam: Normal Skin Exam: Normal - Just felt like Images Front/Back of Body, Lg ([place]): 1 - left calf 2 cm > right, tender laterally 2 - swollen and tender Diagnostics - Radiology No standard instances Radiology Interpretation Completed By: Radiologist Summary of Radiographic Findings: no left VT. + 2 lymph nodes right groin Course/Dx - Diagnoses Provider Diagnosis: Pain of left calf, Right groin pain Discharge ED - Sign-Out/Discharge Documenting (check all that apply): Patient Departure All imaging exams completed and their final reports reviewed: No Studies - Discharge Plan Condition: Stable Disposition: HOME Prescriptions: Naproxen [Naproxen 500 mg tab] 500 mg PO BID PRN #20 tablet PRN Reason: Pain Patient Education Materials: Muscle Strain (DC), Lymphadenopathy (ED) Referrals: Shawn Harding MD [Primary Care Provider] - 1 Week Additional Instructions: heat to right groin blood count pending no blood clot left calf you have swollen gland in the right groin - Billing Disposition and Condition Condition: STABLE Disposition: Home
[2019-05-05 12:23] LABS: Hematocrit 45 % (42-52); Hemoglobin 15.6 g/dL (14.0-18.0); Mean Corpuscular HGB Conc 34 g/dL (31-36); Mean Corpuscular Hemoglobin 30 pg (27-31); Mean Corpuscular Volume 87 fL (80-94); Mean Platelet Volume 9.1 fL (7.4-10.4); Platelet Count 229 10^3/uL (150-450); Red Blood Count 5.19 10^6 /uL (4.18-5.48); Red Cell Distribution Width 14 % (10-15); White Blood Count 9.8 10^3/uL (3.5-10.8)
[2019-05-05 12:58] LABS: ABS Basophils 0.1 10^3/ul (0-0.2); ABS Eosinophils 0.3 10^3/ul (0-0.6); ABS Lymphocytes 2.4 10^3/ul (1.0-4.8); ABS Monocytes 0.7 10^3/ul (0-0.8); ABS Neutrophils 6.2 10^3/ul (1.5-7.7); ABS Nucleated RBC 0.1 10^3/ul; Eosinophil % 3.5 %; Nucleated Red Blood Cells % 0.7
--- NOTE | 2019-05-05 17:42 | UC ---
- Progress Note Progress Note: CBC with diff reviewed no concerning results no change lanj 05/05/19 Course/Dx - Diagnoses Provider Diagnoses: Pain of left calf, Right groin pain Discharge ED - Sign-Out/Discharge Documenting (check all that apply): Post-Discharge Follow Up All imaging exams completed and their final reports reviewed: No Studies - Discharge Plan Condition: Stable Disposition: HOME Prescriptions: Naproxen [Naproxen 500 mg tab] 500 mg PO BID PRN #20 tablet PRN Reason: Pain Patient Education Materials: Muscle Strain (DC), Lymphadenopathy (ED) Referrals: Shawn Harding MD [Primary Care Provider] - 1 Week Additional Instructions: heat to right groin blood count pending no blood clot left calf you have swollen gland in the right groin - Billing Disposition and Condition Condition: STABLE Disposition: Home
== END 2019-05-04 19:18 | disposition home or self-care (01) ==
LOC: UCEAST 16:54
DX: M79.662 Pain in left lower leg (principal); R10.31 Right lower quadrant pain
CPT/HCPCS: 36415; 85025; 99212; G0463

== ENCOUNTER 2019-06-06 23:05 | Emergency (ER) | payer BC ==
[2019-06-07 00:49] LABS: INR 1.08 (0.82-1.09)
[2019-06-07 00:56] LABS: ABS Basophils 0.1 10^3/ul (0-0.2); ABS Eosinophils 0.3 10^3/ul (0-0.6); ABS Lymphocytes 2.3 10^3/ul (1.0-4.8); ABS Monocytes 0.6 10^3/ul (0-0.8); ABS Neutrophils 5.1 10^3/ul (1.5-7.7); Eosinophil % 3.6 %; Hematocrit 44 % (42-52); Hemoglobin 15.4 g/dL (14.0-18.0); Lymphocyte % 27.8 %; Mean Corpuscular HGB Conc 35 g/dL (31-36); Mean Corpuscular Hemoglobin 30 pg (27-31); Mean Corpuscular Volume 86 fL (80-94); Mean Platelet Volume 8.7 fL (7.4-10.4); Nucleated Red Blood Cells % 0.2; Platelet Count 183 10^3/uL (150-450); Red Blood Count 5.06 10^6 /uL (4.18-5.48); Red Cell Distribution Width 14 % (10-15); White Blood Count 8.4 10^3/uL (3.5-10.8)
[2019-06-07 01:02] LABS: Albumin 4.2 g/dL (3.2-5.2); Albumin/Globulin Ratio 1.6 (1-3); BUN/Creatinine Ratio 12.8 (8-20); Calcium 9.1 mg/dL (8.6-10.3); EGFR African American 74.6 (>60); EGFR Non-African American 61.6 (>60); Globulin 2.6 g/dL (2-4); Total Bilirubin 0.4 mg/dL (0.2-1.0); Total Protein 6.8 g/dL (6.4-8.9)
[2019-06-07 01:17] LABS: Potassium 4.1 mmol/L (3.5-5.0)
--- NOTE | 2019-06-07 01:38 | ED ---
HPI Chest Pain - HPI Summary HPI Summary: Pt is a 48 y/o M presenting to the ED with a chief complaint of chest pain initially onset earlier in the morning on 06/06/19. He states this has happened in the past, and it usually comes on suddenly and lasts for a while, but his results are all normal when he gets it checked out. It is described as jolts of pain on his L side of his chest. He tried Ibuprofen and drinking baking soda/ water which did not alleviate the pain. He denies fever, cough, SOB, and nausea. - History of Current Complaint Chief Complaint: EDChestPainROMI Time Seen by Provider: 06/07/19 01:28 Hx Obtained From: Patient Onset/Duration: Started Days Ago, Resolved Timing: Constant, Lasting Days Initial Severity: Mild Current Severity: Moderate Pain Intensity: 6 Pain Scale Used: 0-10 Numeric Chest Pain Location: Left Anterior Chest Pain Radiates: No Character: Other: - "jolting" Aggravating Factor(s): Nothing Alleviating Factor(s): Nothing Associated Signs and Symptoms: Positive: Chest Pain. Negative: Shortness of Breath, Fever, Nausea, Cough - Allergy/Home Medications Allergies/Adverse Reactions: Allergies Allergy/AdvReac Type Severity Reaction Status Date / Time Environmental Allergies Allergy Congestion Uncoded 06/06/19 23:14 Home Medications: Home Medications Fexofenadine HCl [Allergy Relief 24Hr] 180 mg PO DAILY PRN 06/07/19 [History Confirmed 06/07/19] PMH/Surg Hx/FS Hx/Imm Hx Previously Healthy: Yes Endocrine/Hematology History: Denies: Hx Diabetes, Hx Thyroid Disease Cardiovascular History: Denies: Hx Hypertension Respiratory History: Reports: Hx Asthma Denies: Hx Chronic Obstructive Pulmonary Disease (COPD) GI History: Denies: Hx Ulcer - Surgical History Surgery Procedure, Year, and Place: left knee acl repair 1996. laser procedure with eye to correct lazy eye 1999. torn retina repair 2018 Infectious Disease History: No Infectious Disease History: Denies: Hx Clostridium Difficile, Hx Hepatitis, Hx Human Immunodeficiency Virus (HIV), Hx of Known/Suspected MRSA, History Other Infectious Disease, Traveled Outside the [place] in Last 30 Days - Family History Known Family History: Positive: Cardiac Disease, Hypertension - Social History Alcohol Use: None Hx Substance Use: No Substance Use Type: Reports: None Hx Tobacco Use: No Smoking Status (MU): Never Smoked Tobacco Review of Systems - ROS Summary Review of Systems Summary: Home Medications Medication Instructions Recorded Confirmed Type Fluticasone NASAL SPRAY 50MCG* 2 spray BOTH NARES DAILY 05/04/19 05/04/19 History [Flonase NASAL SPRAY 50MCG*] Fluticasone-Salmeterol 250-50* 1 puff INH BID 05/04/19 05/04/19 History [Advair Diskus 250-50*] Naproxen [Naproxen 500 mg tab] 500 mg PO BID PRN #20 tablet 05/04/19 Rx Negative: Fever Positive: Chest Pain Negative: Shortness Of Breath, Cough Negative: Nausea All Other Systems Reviewed And Are Negative: Yes Physical Exam - Summary Physical Exam Summary: General: Well-developed, Well-nourished male. Mildly anxious appearing. HEENT: Normocephalic, Atraumatic. Eyes: Conjuctiva normal, PERRL. Ears: TMs within normal limits. Nares: (-) discharge, (-) erythema. Oropharynx: Clear, mucous membranes moist, (-) exudates. Neck: Soft, FROM, (-) lymphadenopathy, (-) thyromegaly, (-) JVD. Cardiovascular: Normal sinus rhythm, (-) murmur. Lungs: Clear to auscultation bilaterally (-) wheezes, (-) rales, (-) rhonchi. Abdomen: Soft, non-tender, non-distended, (-) organomegaly, normal bowel sounds. Back: (-) CVA tenderness Extremities: No edema. Skin: Warm, dry, (-) rash. Neuro: Alert and oriented x3, no focal deficits. Psychiatric: Mildly anxious appearing. Triage Information Reviewed: Yes Vital Signs On Initial Exam: Initial Vitals Temp Pulse Resp BP Pulse Ox 97.8 F 59 15 121/82 97 06/06/19 23:13 06/06/19 23:13 06/06/19 23:13 06/06/19 23:13 06/06/19 23:13 Vital Signs Reviewed: Yes Procedures - Sedation Patient Received Moderate/Deep Sedation with Procedure: No Diagnostics - Vital Signs Vital Signs Temp Pulse Resp BP Pulse Ox 06/06/19 23:13 97.8 F 59 15 121/82 97 - Laboratory Lab Results: Lab Results 06/07/19 06/07/19 06/07/19 Range/Units 00:25 00:25 00:25 WBC 8.4 (3.5-10.8) 10^3/uL RBC 5.06 (4.18-5.48) 10^6 /uL Hgb 15.4 (14.0-18.0) g/dL Hct 44 (42-52) % MCV 86 (80-94) fL MCH 30 (27-31) pg MCHC 35 (31-36) g/dL RDW 14 (10-15) % Plt Count 183 (150-450) 10^3/uL MPV 8.7 (7.4-10.4) fL Neut % (Auto) 60.3 % Lymph % (Auto) 27.8 % Saline % (Auto) 7.4 % Eos % (Auto) 3.6 % Baso % (Auto) 0.9 % Absolute Neuts (auto) 5.1 (1.5-7.7) 10^3/ul Absolute Lymphs (auto) 2.3 (1.0-4.8) 10^3/ul Absolute Monos (auto) 0.6 (0-0.8) 10^3/ul Absolute Eos (auto) 0.3 (0-0.6) 10^3/ul Absolute Basos (auto) 0.1 (0-0.2) 10^3/ul Absolute Nucleated RBC 0.0 10^3/ul Nucleated RBC % 0.2 INR (Anticoag Therapy) 1.08 (0.82-1.09) Sodium 140 (135-145) mmol/L Potassium 4.1 (3.5-5.0) mmol/L Chloride 104 (101-111) mmol/L Carbon Dioxide 31 (22-32) mmol/L Anion Gap 5 (2-11) mmol/L BUN 16 (6-24) mg/dL Creatinine 1.25 H (0.67-1.17) mg/dL Est GFR ( Amer) 74.6 (>60) Est GFR (Non-Af Amer) 61.6 (>60) BUN/Creatinine Ratio 12.8 (8-20) Glucose 99 (70-100) mg/dL Calcium 9.1 (8.6-10.3) mg/dL Total Bilirubin 0.40 (0.2-1.0) mg/dL AST 20 (13-39) U/L ALT 32 (7-52) U/L Alkaline Phosphatase 125 H (34-104) U/L Troponin I 0.00 (<0.04) ng/mL Total Protein 6.8 (6.4-8.9) g/dL Albumin 4.2 (3.2-5.2) g/dL Globulin 2.6 (2-4) g/dL Albumin/Globulin Ratio 1.6 (1-3) Result Diagrams: 06/07/19 00:25 06/07/19 00:25 Lab Statement: Any lab studies that have been ordered have been reviewed, and results considered in the medical decision making process. - Radiology CXR Radiology Interpretation Completed By: ED Physician Summary of Radiographic Findings: No infiltrate. No pleural effusion. Pending official radiology report. - EKG 2305 Cardiac Rate: Bradycardia - 53bpm EKG Rhythm: Sinus Bradycardia ST Segment: Normal Ectopy: None Summary of EKG Findings: EKG at 2305 reveals sinus bradycardia with rate of 53 BPM, no acute changes, no ischemic changes. This EKG was reviewed and interpreted by Dr. Conti. Re-Evaluation - Re-Evaluation 1st re-eval Re-Evaluation Time: 03:17 Change: Improved Comment: I have discussed results with the patient and chest pain is resolved. Discussed symptoms that warrant immediate return to ED. Chest Pain Course/Dx - Course Course Of Treatment: Pt is a 48 y/o M presenting to the ED with a chief complaint of chest pain initially onset earlier in the morning on 06/06/19. He states this has happened in the past, and it usually comes on suddenly and lasts for a while, but his results are all normal when he gets it checked out. It is described as jolts of pain on his L side of his chest. He denies fever, cough, SOB, and nausea. On exam, pt is mildly anxious appearing. Pt's lab results are WNL aside from Alkaline Phosphate of 125. EKG at 2305 reveals sinus bradycardia with rate of 53 BPM, no acute changes, no ischemic changes. This EKG was reviewed and interpreted by Dr. Conti. Pt's 2nd troponin is 0.00. As of 316, I have discussed results with the patient and chest pain is resolved. Discussed symptoms that warrant immediate return to ED. Pt will be sent home with dx of chest pain. - Diagnoses Provider Diagnoses: Chest pain Discharge ED - Sign-Out/Discharge Documenting (check all that apply): Patient Departure - Discharge Plan Condition: Stable Disposition: HOME Patient Education Materials: Chest Pain (ED) Referrals: Shawn Harding MD [Primary Care Provider] - Additional Instructions: Please follow up with your primary care physician within three days. Please return to ED for any new or worsening symptoms. - Billing Disposition and Condition Condition: STABLE Disposition: Home - Attestation Statements Document Initiated by Scribe: Yes Documenting Scribe: Cyndy Odonnell Provider For Whom Heidyibivania is Documenting (Include Credential): Deysi Conti MD. Scribe Attestation: Cyndy Aguirre, gerardoed for Deysi Conti MD. on 06/07/19 at 0508. Scribe Documentation Reviewed: Yes Provider Attestation: The documentation as recorded by the Cyndy cee accurately reflects the service I personally performed and the decisions made by Deysi bolton MD. Status of Scribe Document: Viewed
[2019-06-07 03:25] VITALS: BP 116/85
== END 2019-06-07 03:25 | disposition home or self-care (01) ==
LOC: ED 23:05
DX: R07.9 Chest pain, unspecified (principal); Z79.899 Other long term (current) drug therapy
CPT/HCPCS: 36415; 71045; 80053; 84484; 85025; 85610; 93005; 99283